=== PATIENT | female | born 1965 | race Caucasian/White ===

== ENCOUNTER 2017-02-05 11:06 | Emergency (ER) | payer MEDICARE, MEDICAID ==
[~2017-02-05] VITALS: Ht 160 cm; Wt 60.8 kg
--- NOTE | 2017-02-05 11:30 | NUR ---
PT CAME IN FOR L WRIST PAIN AND SWELLING S/P GLF 30 MIN HYDROLOGY PROFESSOR. DENIES HEAD, NECK PAIN. DENIES KO. SEEN BY MD FOR EVAL. AAOX3. VSS. SAFETY AND COMFORT MEASURES PROVIDED. WILL MONITOR.
--- NOTE | 2017-02-05 11:40 | NUR ---
XRAY DONE AT BS.
[2017-02-05] MEDS ORDERED: IBUPROFEN 400 MG TABLET ONE (11:43)
[2017-02-05] MEDS: IBUPROFEN 400 MG TABLET PO ONE (11:48)
[2017-02-05 12:53] VITALS: BP 145/77
--- NOTE | 2017-02-05 12:53 | NUR ---
PT. VERBALIZED UNDERSTANDING OF AFTERCARE INSTRUCTIONS.Patient discharged to home in stable condition. Written and verbal after care instructions given. Patient verbalizes understanding of instruction.
== END 2017-02-05 13:01 | disposition home or self-care (01) ==
LOC: ER 11:07
DX: S52.612A Displaced fracture of left ulna styloid process, initial encounter for closed fracture (principal); S52.502A Unspecified fracture of the lower end of left radius, initial encounter for closed fracture; N18.6 End stage renal disease; Z99.2 Dependence on renal dialysis; Q61.3 Polycystic kidney, unspecified; W18.39XA Other fall on same level, initial encounter; Y93.89 Activity, other specified; Y92.89 Other specified places as the place of occurrence of the external cause; Y99.9 Unspecified external cause status
CPT/HCPCS: 29125; 73100; 99284; A4606; Z7610

== ENCOUNTER 2019-03-15 17:48 | Inpatient (IN) | payer MEDICARE, MEDICAID ==
[~2019-03-15] VITALS: Ht 160 cm; Wt 58.1 kg
[~2019-03-15 17:48] MED LIST: PIPERACILLIN /TAZOBACTAM 2.25 G in IV D5W 50 ML IV SCH
--- NOTE | 2019-03-15 17:48 | NUR ---
PT BIBRA FROM HOME FOR GEN WEAKNESS, BS MEDICAL RESEARCH TECH 40; PT AAOX4, -SOB, PT ON MONITOR, MD AT BEDSIDE FORE JANESSA
[2019-03-15] MEDS ORDERED: DEXTROSE 50%-WATER 50 ML DISP.SYRIN ONE (17:58)
[2019-03-15] MEDS ORDERED: DEXTROSE 50%-WATER 50 ML DISP.SYRIN IVP ONE (18:00)
[2019-03-15 18:23] LABS: BASOPHILS # (AUTO) 0.2 /CMM (0.0-0.2); BASOPHILS % (AUTO) 1.5 % (0.0-2.0); EOSINOPHILS % (AUTO) 0.1 % (0.0-6.0); HEMATOCRIT 38 % (33-45); HEMOGLOBIN 11.6 g/dL (11.5-14.8); LYMPHOCYTES # (AUTO) 2.1 /CMM (0.8-4.8); LYMPHOCYTES % (AUTO) 19.8 % (20.0-44.0); MEAN CORPUSCULAR HGB CONC 30 g/dl (31.0-36.0); MEAN CORPUSCULAR VOLUME 94 fL (82-100); MONOCYTES # (AUTO) 0.6 /CMM (0.1-1.30); MONOCYTES % (AUTO) 5.2 % (2.0-12.0); NEUTROPHILS # (AUTO) 7.8 /CMM (1.8-8.9); NEUTROPHILS % (AUTO) 73.4 % (43.0-81.0); PLATELET COUNT (AUTO) 447 /CMM (150-450); RED BLOOD CELL COUNT(AUTO) 4.07 MIL/uL (4.0-5.2); WHITE BLOOD COUNT (AUTO) 10.6 K/uL (4.3-11.0)
[2019-03-15] MEDS ORDERED: ONDANSETRON HCL/PF 4 MG/2 ML VIAL ONE ×2 (18:27→19:03)
[2019-03-15] MEDS ORDERED: ONDANSETRON HCL/PF - ER 4 MG/2 ML VIAL IV ONE ×2 (18:30→19:00)
[2019-03-15 18:43] LABS: CALCIUM, SERUM 8.2 mg/dL (8.5-10.1); POTASSIUM 6.1 mmol/L (3.5-5.1)
[2019-03-15] MEDS ORDERED: HYDROMORPHONE 1 MG/1 ML DISP.SYRIN ONE ×2 (18:43→21:11)
[2019-03-15 18:47] LABS: ALBUMIN 3.8 g/dL (3.4-5.0); BILIRUBIN,DIRECT 0.1 mg/dL (0.0-0.2); BILIRUBIN,TOTAL 0.3 mg/dL (0.2-1.0); TOTAL PROTEIN, SERUM 8.1 g/dL (6.4-8.2)
[2019-03-15 18:56] LABS: CREATININE 8.9 mg/dL (0.6-1.3)
[2019-03-15] MEDS ORDERED: HYDROMORPHONE INJ 0.5 MG/0.5 ML SYRINGE IV ONE (19:00)
[2019-03-15] MEDS ORDERED: IV NS 0.9% 1,000 ML BAG IV ONE (19:00)
[2019-03-15] MEDS ORDERED: IOHEXOL-300 100 ML VIAL IV ONE (19:16)
[2019-03-15] MEDS ORDERED: IV NS 0.9% 250 ML IV ONE (19:16)
[2019-03-15] MEDS ORDERED: CT SWABBABLE VALVE TRANS SET 1 EA INFUS.SET MC ONE (19:16)
[2019-03-15 19:24] LABS: ABG BASE EXCESS -25.7 mmol/L; ABG OXYGEN SATURATION 97.1 % (92.0-98.5); ABG PCO2 12.5 mmHg (35.0-45.0); ABG PH 7.025 (7.350-7.450); ABG PO2 139.1 mmHg (75.0-100.0); COHb 0.2 % (0.5-1.5); MetHb 0.6 % (0.0-1.5); O2Hb 96.3 % (94.0-97.0); SITE, ABG Right Radial; VENT MODE, BG ROOM AIR
[2019-03-15] MEDS ORDERED: PIPERACILLIN /TAZOBACTAM 3.375 G in IV D5W 50 ML IV ONE (19:30)
[2019-03-15] MEDS ORDERED: IOHEXOL-350 100 ML VIAL IV ONE (19:43)
--- NOTE | 2019-03-15 20:01 | NUR ---
CALLED LEATHER PRODUCTION MACHINE OPERATOR SURGEON DR MOY, ON THE PHONE WITH DR COLUNGA.
[2019-03-15] MEDS ORDERED: PIPERACILLIN /TAZOBACTAM 3.375 G VIAL IV ONE (20:13)
[2019-03-15] MEDS ORDERED: SODIUM BICARBONATE SYR 50 MEQ/50 ML DISP.SYRIN ONE ×2 (20:26→22:36)
[2019-03-15] MEDS ORDERED: SODIUM BICARBONATE SYR 50 MEQ/50 ML DISP.SYRIN IV ONE ×3 (20:30→23:00)
[2019-03-15 20:41] LABS: APPEARANCE,URINE Clear (CLEAR); BILIRUBIN,URINE Negative (NEGATIVE); BLOOD, URINE Small Ery/uL (NEGATIVE); COLOR,URINE Light yellow (YELLOW); KETONES,URINE 40 (NEGATIVE); LEUKOCYTE ESTERASE ,URINE Negative (NEGATIVE); NITRITE, URINE Negative (NEGATIVE); PH,URINE 6.5 (5.0-8.0); PROTEIN,URINE >=300 mg/dl (NEGATIVE); UGLUCOSE 100 MG/DL mg/dL (NEGATIVE); UROBILINOGEN,URINE 0.2 EU/dL (0.2)
[2019-03-15 20:50] LABS: BACTERIA,URINE Rare /HPF (None Seen); SQUAMOUS EPITHELIAL CELL,UR Few /HPF (None Seen); WBC,URINE 0-2 /HPF (0-3)
[2019-03-15] MEDS ORDERED: VANCOMYCIN 1 GM in IV D5W 250 ML IV ONE (21:00)
[2019-03-15] MEDS ORDERED: HYDROMORPHONE 1 MG/1 ML DISP.SYRIN IV ONE (21:00)
[2019-03-15 21:30] LABS: CALCIUM, SERUM 7.3 mg/dL (8.5-10.1); POTASSIUM 6.1 mmol/L (3.5-5.1)
[2019-03-15 21:32] LABS: CREATININE 8.7 mg/dL (0.6-1.3)
[2019-03-15] MEDS ORDERED: IV NS 0.9% 1,000 ML IV PRN (21:42)
[2019-03-15] MEDS ORDERED: ONDANSETRON HCL/PF 4 MG/2 ML VIAL IVP PRN (22:00)
[2019-03-15] MEDS ORDERED: Sodium Bicarbonate 150 MEQ in IV D5W 1,000 ML IV PRN ×2 (22:00→22:30)
[2019-03-15] MEDS ORDERED: Z GUARD REMEDY 2 OZ OINT TP PRN (22:00)
[2019-03-15] MEDS ORDERED: NOREPINEPHRINE 8 MG in IV D5W 500 ML IV PRN (22:00)
[2019-03-15 22:04] LABS: LYMPHOCYTES % (MANUAL) 12 % (16-48); METAMYELOCYTES % 1 % (0-0); MONOCYTES % (MANUAL) 4 % (0-11.0); MYELOCYTES % 4 % (0-0); NEUTROPHILS % (MANUAL) 79 (42-76)
--- NOTE | 2019-03-15 22:05 | NUR ---
REPORT GIVEN TO LARRY ADORNO FOR MERCEDEZ; PT WILL BE TRANSPORTED TO ICU VIA [facility]
--- NOTE | 2019-03-15 22:06 | NUR ---
NETTING INSPECTOR NOTES GABRIEL SELLERS AT BEDSIDE, WITH VERBAL ORDER FOR LIDOCAINE 2%. ORDER PLACED Addendum: 03/15/19 at 2212 by JADE MARCUS RN ORDER CHANGED TO XYLOCAINE 1% 30ML VIAL X1
[2019-03-15 22:07] VITALS: BP 189/81
[2019-03-15] MEDS ORDERED: LIDOCAINE HCL/MPF 1% 30 ML VIAL IJ ONE (22:07)
[2019-03-15 22:25] VITALS: BP 192/77
[2019-03-15] MEDS ORDERED: LIDOCAINE HCL/PF 1% 30 ML SDV IJ ONE (22:30)
[2019-03-15] MEDS ORDERED: LIDOCAINE 2% 20 ML MDV TP ONE (22:30)
[2019-03-15] MEDS ORDERED: hydrALAZINE HCL IV 20 MG VIAL ONE (22:31)
--- NOTE | 2019-03-15 22:36 | NUR ---
RADIATION OFFICER NOTES GABRIEL SELLERS AT BEDSIDE, WITH VERBAL ORDER FOR 1 AMP OF SODIUM BICARBONATE IV PUSH X1 NOW. READ BACK FOR CLARIFICATION. PATIENT TO GET 1 AMP BICARB IV PUSH, THEN START BICARB DRIP OF 3 AMPS BICARB IN D5W 1000ML @ 80ML/HR
[2019-03-15] MEDS: hydrALAZINE HCL IV 20 MG VIAL IV PRN (22:40)
[2019-03-15 22:45] VITALS: BP 195/75
[2019-03-15 23:00] VITALS: BP 182/73
[2019-03-15] MEDS ORDERED: ROCURONIUM BROMIDE 50 MG/5 ML ONE (23:04)
[2019-03-15] MEDS ORDERED: MIDAZOLAM HCL 2 MG/2ML VIAL ONE (23:04)
[2019-03-15] MEDS ORDERED: HYDROMORPHONE INJ 2 MG/ML DISP.SYRIN ONE (23:05)
--- NOTE | 2019-03-15 23:15 | NUR ---
RN NOTES DR. MOY ( SURGEON) AT BEDSIDE TOGETHER WITH OR STAFF TO ASSESS THE PATIENT AND EXPLAINED THE PROCEDURE.
--- NOTE | 2019-03-15 23:21 | NUR ---
RN NOTES PATIENT LEFT FOR SURGERY FOR EXPLORATORY LAPAROTOMY WITH DR. MOY (SURGEON) AND PICKED UP BY OR STAFF
[2019-03-15] MEDS ORDERED: BUPIVACAINE MPF 0.5% W/EPI INJ 30 ML VIAL ONE (23:59)
[2019-03-16] VITALS (40 sets, daily range): BP systolic 83–149; BP diastolic 34–67
--- NOTE | 2019-03-16 00:45 | NUR ---
SURVEILLANCE DIRECTOR NOTES PATIENT BACK FROM GABRIEL COLVIN WITH VERBAL ORDER TO START PROPOFOL GTT, PATIENT INTUBATED.
[2019-03-16] MEDS ORDERED: PROPOFOL 100 ML ONE (00:46)
--- NOTE | 2019-03-16 00:50 | NUR ---
RN NOTES PATIENT CAME BACK FROM O.R ORALLY INTUBATED WITH ETT 7.0 AND 22 CM @ LIP. CONNECTED TO VENT SETTING AC 16 TV 500 FIO2 40% PEEP 5. PT STILL SEDATED, VERBALLY ORDER RECEIVED FROM DR. SELLERS TO START PROPOFOL AND TITRATE ORDERED AND BILATERAL WRIST RESTRAINT. NOTED PATIENT WITH 3 SURGICAL SITE ON ABDOMEN. IV SITE ON RIJ WITH DOUBLE LUMEN CATH INTACT WITH GOOD BLOOD RETURN DONE IN O.R. WILL CONTINUE TO MONITOR.
[2019-03-16] MEDS ORDERED: PROPOFOL 100 ML IV PRN (01:00)
[2019-03-16 01:34] LABS: BASOPHILS # (AUTO) 0.2 /CMM (0.0-0.2); BASOPHILS % (AUTO) 0.7 % (0.0-2.0); EOSINOPHILS % (AUTO) 0.4 % (0.0-6.0); HEMATOCRIT 37 % (33-45); HEMOGLOBIN 10.6 g/dL (11.5-14.8); LYMPHOCYTES # (AUTO) 2.1 /CMM (0.8-4.8); LYMPHOCYTES % (AUTO) 8.9 % (20.0-44.0); MEAN CORPUSCULAR HGB CONC 29 g/dl (31.0-36.0); MEAN CORPUSCULAR VOLUME 97 fL (82-100); MONOCYTES # (AUTO) 1.1 /CMM (0.1-1.30); MONOCYTES % (AUTO) 4.5 % (2.0-12.0); NEUTROPHILS # (AUTO) 20.2 /CMM (1.8-8.9); NEUTROPHILS % (AUTO) 85.5 % (43.0-81.0); PLATELET COUNT (AUTO) 398 /CMM (150-450); RED BLOOD CELL COUNT(AUTO) 3.77 MIL/uL (4.0-5.2); WHITE BLOOD COUNT (AUTO) 23.6 K/uL (4.3-11.0)
[2019-03-16 01:52] LABS: BAND % (MANUAL) 3 % (0.0-5.0); LYMPHOCYTES % (MANUAL) 12 % (16-48); MONOCYTES % (MANUAL) 5 % (0-11.0)
[2019-03-16 01:53] LABS: METAMYELOCYTES % 1 % (0-0); MYELOCYTES % 1 % (0-0); NEUTROPHILS % (MANUAL) 78 (42-76)
--- NOTE | 2019-03-16 02:00 | NUR ---
RN NOTES INFORMED DR. SELLERS THAT PATIENT STILL AWAKE, SLIGHT AGITATED AND REPORTED CRITICAL VALUE OF BICARB 7 AND CREA - 9.3 AND LACTIC ACID 18.4 . PATIENT IS ALREADY WITH IVF D5W +3 AMP NA HCO3 @ 80 ML/HR. PER MD TO GIVE NS 500ML BOLUS AND OK TO INCREASE PROPOFOL UPTO 100 MCG/KG/MIN. 02:50 DR. SELLERS ON THE FLOOR REPORTED POST INTUBATION CXR RESULT.
[2019-03-16 02:01] LABS: ALBUMIN 3.2 g/dL (3.4-5.0); BILIRUBIN,TOTAL 0.3 mg/dL (0.2-1.0); CALCIUM, SERUM 7.3 mg/dL (8.5-10.1); POTASSIUM 5.3 mmol/L (3.5-5.1); TOTAL PROTEIN, SERUM 6.8 g/dL (6.4-8.2)
[2019-03-16 02:03] LABS: CREATININE 9.3 mg/dL (0.6-1.3)
[2019-03-16] MEDS ORDERED: IV NS 0.9% 500 ML IV ONE (03:00)
[2019-03-16] MEDS: PROPOFOL 100 ML IV PRN ×7 (04:19→23:57)
[2019-03-16] MEDS ORDERED: PIPERACILLIN /TAZOBACTAM 2.25 G VIAL IV ONE (04:23)
[2019-03-16 04:44] LABS: BASOPHILS # (AUTO) 0.1 /CMM (0.0-0.2); BASOPHILS % (AUTO) 0.3 % (0.0-2.0); EOSINOPHILS % (AUTO) 0.1 % (0.0-6.0); HEMATOCRIT 33 % (33-45); HEMOGLOBIN 9.9 g/dL (11.5-14.8); LYMPHOCYTES # (AUTO) 1.5 /CMM (0.8-4.8); LYMPHOCYTES % (AUTO) 6.3 % (20.0-44.0); MEAN CORPUSCULAR HGB CONC 30 g/dl (31.0-36.0); MEAN CORPUSCULAR VOLUME 96 fL (82-100); MONOCYTES # (AUTO) 1.6 /CMM (0.1-1.30); MONOCYTES % (AUTO) 6.9 % (2.0-12.0); NEUTROPHILS # (AUTO) 20.6 /CMM (1.8-8.9); NEUTROPHILS % (AUTO) 86.4 % (43.0-81.0); PLATELET COUNT (AUTO) 358 /CMM (150-450); RED BLOOD CELL COUNT(AUTO) 3.46 MIL/uL (4.0-5.2); WHITE BLOOD COUNT (AUTO) 23.9 K/uL (4.3-11.0)
[2019-03-16 04:58] LABS: ALBUMIN 2.9 g/dL (3.4-5.0); BILIRUBIN,TOTAL 0.2 mg/dL (0.2-1.0); CALCIUM, SERUM 6.9 mg/dL (8.5-10.1); MAGNESIUM 2.1 mg/dL (1.8-2.4); POTASSIUM 5.3 mmol/L (3.5-5.1); TOTAL PROTEIN, SERUM 6.2 g/dL (6.4-8.2)
[2019-03-16 05:23] LABS: ABG BASE EXCESS -26.6 mmol/L; ABG OXYGEN SATURATION 98.3 % (92.0-98.5); ABG PCO2 16.2 mmHg (35.0-45.0); ABG PO2 199.3 mmHg (75.0-100.0); AaDO2 67.3 mmHg; COHb 0.3 % (0.5-1.5); MetHb 0.7 % (0.0-1.5); O2Hb 97.3 % (94.0-97.0); PEEP,BG 5 cm H2O; SITE, ABG Right Radial; VENT MODE, BG AC 16 500 40% +5; VT, ABG 500 mL
[2019-03-16 05:23] LABS: THYROID STIMULATING HORMONE 1.001 uIU/mL (0.358-3.74)
[2019-03-16 05:30] LABS: CREATININE 9.2 mg/dL (0.6-1.3); PHOSPHORUS 13.5 mg/dL (2.5-4.9)
--- NOTE | 2019-03-16 07:00 | NUR ---
RN NOTES DIALYSIS STARTED AT THIS TIME. PATIENT IS SEDATED. BED BATH DONE AND TOLERATED WELL. SATURATION REMAINED 100%.GOT A CRITICAL REPORT THAT CO2 5 , CREA 9.3 AND PHOS 13.5 CRITICAL VALUE REPORTED TO DR SELLERS. IVF D5W +3 AMP NA H30 ONGOING AND PROPOFOL TITRATED ORDERED. KEPT PT CLEAN AND DRY. ENDORSED TO NEXT SHIFT FOR CONTINUITY OF CARE
--- NOTE | 2019-03-16 08:00 | NUR ---
RN INITIAL NOTES ON GOING DIALYSIS AT THIS TIME. PATIENT OPENS EYES TO STIMULI, ETT IN PLACE ATTACHED TO VENT AND SETTINGS TOLERATED WELL. SATURATION REMAINED 100%.IVF D5W +3 AMP NA H30 ONGOING AND PROPOFOL TITRATED ORDERED. KEPT PT CLEAN AND DRY. HUTCHISON DRAINING THRU GRAVITY. MAXILLOFACIAL SURGEON RESTRAINTS IN PLACE, SKIN AND CIRCULATION WNL. NO BLEEDING NOTED FROM ABDOMINAL SURGICAL SITE. POSITIONED FOR COMFORT. SINUS RHYTHM ON THE MONITOR.
[2019-03-16 09:15] LABS: ABG BASE EXCESS -9.3 mmol/L; ABG OXYGEN SATURATION 98.8 % (92.0-98.5); ABG PCO2 21.5 mmHg (35.0-45.0); ABG PH 7.422 (7.350-7.450); ABG PO2 204.1 mmHg (75.0-100.0); AaDO2 56.4 mmHg; COHb 0.1 % (0.5-1.5); MetHb 0.5 % (0.0-1.5); O2Hb 98.2 % (94.0-97.0); SITE, ABG A-Line
[2019-03-16] MEDS: FAMOTIDINE/PF INJ 20 MG/2 ML VIAL IV SCH (09:53)
--- NOTE | 2019-03-16 10:00 | NUR ---
RN NOTES DR BACK WITH HEPARIN SUBQ VERBAL ORDER Q 12 HOURS 5000 UNITS; NOTED AND CARRIED OUT
[2019-03-16] MEDS ORDERED: Sodium Acetate 150 MEQ in IV D5W 1,000 ML IV PRN (10:13)
[2019-03-16] MEDS ORDERED: CLINDAMYCIN 600 MG in IV NS 0.9% 50 ML IV SCH (13:00)
[2019-03-16] MEDS ORDERED: CLINDAMYCIN 600 MG in IV D5W 50 ML IV SCH (13:00)
[2019-03-16] MEDS: PIPERACILLIN /TAZOBACTAM 2.25 G in IV D5W 50 ML IV SCH ×2 (13:36→21:11)
[2019-03-16] MEDS: IV NS 0.9% 1,000 ML IV PRN (13:36)
[2019-03-16 17:27] LABS: ABG BASE EXCESS -9.4 mmol/L; ABG PCO2 21.8 mmHg (35.0-45.0); ABG PH 7.415 (7.350-7.450); ABG PO2 139.8 mmHg (75.0-100.0); AaDO2 48.5 mmHg; COHb 0.3 % (0.5-1.5); MetHb 0.7 % (0.0-1.5); SITE, ABG A-Line; VENT MODE, BG AC 16 500 30% +5
--- NOTE | 2019-03-16 19:13 | NUR ---
RN CLOSING NOTES PT REMAINS ON PROPOFOL, TITRATED DIRECTED. NO A/R NOTED. BP LEVELS REMAINS STABLE. VENT SETTINGS TOLERATED WELL. TURNED AND REPOSITIONED. IVF INFUSING WELL. WILL CONTINUE WITH CURRENT TREATMENT. WILL ENDORSE TO NEXT SHIFT RN FOR CONTINUITY OF CARE IN STABLE CONDITION Addendum: 03/16/19 at 1922 by ANNA CRAWFORD RN KUMAR SOFT WRIST RESTRAINTS RELEASED AT INTERVALS, ROM DONE, SKIN AND CIRCULATION WNL.
--- NOTE | 2019-03-16 19:45 | NUR ---
ICU/STRAP CUTTING MACHINE OPERATOR RECEIVED REPORT FROM DAY NURSE. SEE NURSING FLOW SHEET FOR ASSESSMENT ALONG SKIN ISSUES THAT PT MAY HAVE ALONG WITH EACH INTERVENTION TO THESE. PT HAS IV' WHICH ARE ADDRESSED ON THE FLOWSHEET ALONG WITH THE TITRATIONS. PT WAS TURNED AND REPOSITIONED FOR COMFORT AND CARE. NO ACUTE DISTRESS SEEN AT THIS TIME. WILL MONITOR THIS PT.
--- NOTE | 2019-03-16 20:28 | NUR ---
PATIENT RECEIVED ORALLY INTUBATED WITH 7.0 ET TUBE SECURED @ 22 CM LIP LINE. VENT SETTINGS: AC 16, 500, 30%, PEEP 5 PT IS SEDATED , ET TUBE SECURED AND PATENT. VENT PLUGGED TO RED OUTLET. ALARMS ON AND AUDIBLE. SUCTIONED SMALL AMOUNT OF [place]O THICK SECRETIONS. WILL CONTINUE TO MONITOR CLOSELY.
[2019-03-16] MEDS: HEPARIN SODIUM, PORCINE 5000 UNITS/1 ML VIAL SQ SCH (21:16)
[2019-03-16 21:46] LABS: BASOPHILS % (AUTO) 0.3 % (0.0-2.0); HEMATOCRIT 27 % (33-45); LYMPHOCYTES # (AUTO) 1.1 /CMM (0.8-4.8); MEAN CORPUSCULAR HGB CONC 33 g/dl (31.0-36.0); MEAN CORPUSCULAR VOLUME 87 fL (82-100); MONOCYTES # (AUTO) 0.8 /CMM (0.1-1.30); MONOCYTES % (AUTO) 11.1 % (2.0-12.0); NEUTROPHILS % (AUTO) 72.6 % (43.0-81.0); PLATELET COUNT (AUTO) 193 /CMM (150-450); RED BLOOD CELL COUNT(AUTO) 3.15 MIL/uL (4.0-5.2); WHITE BLOOD COUNT (AUTO) 6.9 K/uL (4.3-11.0)
--- NOTE | 2019-03-16 22:10 | NUR ---
ICU/TRANSIT PROOF MACHINE OPERATOR DR CAMPBELL HERE TO SEE PT, ASKED ABOUT AM LABS THEN ORDERED STAT LABS.
[2019-03-16 22:15] LABS: CALCIUM, SERUM 6.4 mg/dL (8.5-10.1)
[2019-03-16 22:17] LABS: CREATININE 7.5 mg/dL (0.6-1.3)
[2019-03-16 22:22] LABS: BILIRUBIN,TOTAL 0.4 mg/dL (0.2-1.0)
[2019-03-16 22:23] LABS: ALBUMIN 2.6 g/dL (3.4-5.0); TOTAL PROTEIN, SERUM 5.5 g/dL (6.4-8.2)
--- NOTE | 2019-03-16 22:30 | NUR ---
ICU/MARBLEIZER PT GIVEN PM CARE, NO BM SEEN. PT IS ORALLY INTUBATED WITH SATURATION AT 98-100%. PT WAS TURNED AND REPOSITIONED FOR COMFORT AND CARE. WILL CONTINUE TO MONITOR THIS PT, ALONG WITH SATURATION, AND HEART RATE. NO ACUTE DISTRESS SEEN AT THIS TIME.
--- NOTE | 2019-03-16 23:10 | NUR ---
ICU/MANAGER TECHNICAL SUPPORT STAT LABS RESULTED TO DR CAMPBELL. NO NEW ORDERS RECEIVED AT THIS TIME.
[2019-03-17] VITALS (29 sets, daily range): BP systolic 122–191; BP diastolic 52–80
--- NOTE | 2019-03-17 02:10 | NUR ---
ICU/TURKEY ROLL MAKER FAMILY CAME FOR BRIEF VISIT, GAVE UPDATE.
[2019-03-17] MEDS: PROPOFOL 100 ML IV PRN ×2 (02:33→05:50)
[2019-03-17] MEDS: PIPERACILLIN /TAZOBACTAM 2.25 G in IV D5W 50 ML IV SCH ×3 (04:10→20:39)
--- NOTE | 2019-03-17 04:10 | NUR ---
ICU/INSURANCE COUNSELOR PT GIVEN AM CARE, NO BM SEEN. PT REMAINS ORALLY INTUBATED WITH SATURATION AT 98-100%. PT WAS TURNED AND REPOSITIONED FOR COMFORT AND CARE. WILL CONTINUE TO MONITOR THIS PT, ALONG WITH SATURATION, AND HEART RATE. NO ACUTE DISTRESS SEEN AT THIS TIME.
[2019-03-17 04:29] LABS: BASOPHILS % (AUTO) 0.4 % (0.0-2.0); EOSINOPHILS % (AUTO) 0.1 % (0.0-6.0); HEMATOCRIT 27 % (33-45); LYMPHOCYTES # (AUTO) 1.2 /CMM (0.8-4.8); LYMPHOCYTES % (AUTO) 16.8 % (20.0-44.0); MEAN CORPUSCULAR HGB CONC 34 g/dl (31.0-36.0); MEAN CORPUSCULAR VOLUME 88 fL (82-100); MONOCYTES # (AUTO) 0.7 /CMM (0.1-1.30); MONOCYTES % (AUTO) 9.7 % (2.0-12.0); NEUTROPHILS # (AUTO) 5.2 /CMM (1.8-8.9); PLATELET COUNT (AUTO) 199 /CMM (150-450); RED BLOOD CELL COUNT(AUTO) 3.06 MIL/uL (4.0-5.2); WHITE BLOOD COUNT (AUTO) 7.1 K/uL (4.3-11.0)
[2019-03-17 04:43] LABS: CALCIUM, SERUM 6.5 mg/dL (8.5-10.1); MAGNESIUM 1.8 mg/dL (1.8-2.4); PHOSPHORUS 6.4 mg/dL (2.5-4.9); POTASSIUM 4.7 mmol/L (3.5-5.1)
--- NOTE | 2019-03-17 04:45 | NUR ---
ICU/FABRICATOR [facility] CALLED WITH ABNORMAL CHEST CT RESULTS WHICH WAS DONE AT 03/16/19 @ 1045 ON DAY SHIFT. RESULTS CAME IN ON 03/17/19@0240. RESULTS: 1. Interval development of intra-abdominal free air and rule out ruptured viscus. Recommend clinical correlation. 2. Right internal jugular central line and with the distal portion extending into the right internal mammary vein. 3. Small right pleural effusion. No pneumothoraces. 4. Bibasilar subsegmental atelectasis. Additional bilateral lower lobe multi focal patchy ground-glass opacities consistent with edema and/or infection. 5. Mild cardiomegaly. 6. Polycystic kidney disease and innumerable hepatic cysts. 7. Subcutaneous emphysema involving the left lower thoracic and abdominal estrada. DR CAMPBELL WAS CALLED TO NOTIFY HIM OF RESULTS, NO NEW ORDERS WERE RECEIVED. ALSO AT THIS TIME NOTIFIED CHARGE NURSE.
--- NOTE | 2019-03-17 05:03 | NUR ---
ICU/ROTARY SHEAR OPERATOR AM LABS WERE DONE, AWAIT FOR ANY ABNORMAL LABS. AND CHEST XRAY TOO.
[2019-03-17] MEDS: IV NS 0.9% 1,000 ML IV PRN (05:50)
--- NOTE | 2019-03-17 07:10 | NUR ---
RN INITIAL NOTES RECEIVED PT INTUBATED, ON VENT. NO RESPIRATORY DISTRESS NOTED. NO SOB NOTED. NO SIGNS OF PAIN NOTED. PT SEDATED, ON DIPRIVAN AT 95MCG/MIN. WILL TITRATE ACCORDINGLY. RIJ TLC IN PLACE. IV LINES IN PLACE. IVF INFUSING. PT ON NPO. FC IN PLACE. NO HEMATURIA NOTED. BLE ELEVATED. PT REPOSITIONED. WILL MONITOR.
[2019-03-17] MEDS: FAMOTIDINE/PF INJ 20 MG/2 ML VIAL IV SCH (08:19)
[2019-03-17] MEDS: HEPARIN SODIUM, PORCINE 5000 UNITS/1 ML VIAL SQ SCH ×2 (08:20→20:45)
[2019-03-17 08:51] LABS: ABG BASE EXCESS -7.2 mmol/L; ABG OXYGEN SATURATION 97.6 % (92.0-98.5); ABG PCO2 28.7 mmHg (35.0-45.0); ABG PH 7.386 (7.350-7.450); ABG PO2 128.5 mmHg (75.0-100.0); AaDO2 51.7 mmHg; COHb 0.3 % (0.5-1.5); MetHb 0.6 % (0.0-1.5); O2Hb 96.7 % (94.0-97.0); PEEP,BG 5 cm H2O; SITE, ABG A-Line; VT, ABG 500 mL
--- NOTE | 2019-03-17 09:00 | NUR ---
RN NOTES 0830 DR EVA MOY AWARE AND DISCUSSED CT ABDOMEN WO CONTRAST RESULT. PER MD, INTRA ABDOMINAL FREE AIR IS RESIDUAL FROM LAPAROSCOPIC SURGERY. NO ORDER MADE. WILL MONITOR 0900 SEEN AND EXAMINED BY DR GUERRA. PT ON SEDATION VACATION. PT AWAKE, A/OX1-2. NO SOB NOTED. FOLLOWS SIMPLE COMMANDS. ORDERED WEANING TRIAL. ANG AFTER 1HR. FAMILY AT BEDSIDE AWARE. WILL CLOSELY MONITOR
--- NOTE | 2019-03-17 09:26 | NUR ---
vent changes below per dr. chao: simv 4 ps15 peep +5 fio2 30% pt. is awake and follow commands and tolerating well on above changes. family @ bedside. Addendum: 03/17/19 at 0928 by FAUSTO WHEELER RT Amended: Links added.
[2019-03-17 10:51] LABS: ABG BASE EXCESS -8.8 mmol/L; ABG OXYGEN SATURATION 97.7 % (92.0-98.5); ABG PCO2 28.1 mmHg (35.0-45.0); ABG PH 7.359 (7.350-7.450); ABG PO2 139.5 mmHg (75.0-100.0); AaDO2 41.4 mmHg; COHb 0.3 % (0.5-1.5); MetHb 0.7 % (0.0-1.5); O2Hb 96.7 % (94.0-97.0); PEEP,BG 5 cm H2O; SITE, ABG A-Line; VENT MODE, BG SIMV 4 / PS 15; VT, ABG 500 mL
--- NOTE | 2019-03-17 11:10 | NUR ---
PT IS AWAKE AND ALERT EXTUBATED @ [address] GUERRA, PLACED INTO ROOM AIR SPO2 100%, HR 76 BPM. RN NOTIFIED FOR EXTUBATION. Addendum: 03/17/19 at 1116 by FAUSTO WHEELER RT Amended: Links added.
--- NOTE | 2019-03-17 12:30 | NUR ---
RN NOTES CALLED DR CAPO MOY AND NOTIFIED OF LACTIC ACID 7.3 FROM 8.5 AND LIPASE 761 FROM 1858. PT AWAKE, A/OX2-3. ON ROOM AIR. EXTUBATED AT 1110. NO RESPIRATORY DISTRESS NOTED. NO SOB NOTED. DENIES ANY PAIN. NO NEW ORDER MADE
[2019-03-17] MEDS: MORPHINE SULFATE INJ 2 MG/ML DISP.SYRIN IV PRN (13:16)
[2019-03-17] MEDS ORDERED: Calcium Gluconate 1GM/10ML 9.3 MEQ in IV NS 0.9% 250 ML IV ONE (14:00)
[2019-03-17 15:13] LABS: ABG BASE EXCESS -9.4 mmol/L; ABG OXYGEN SATURATION 93.4 % (92.0-98.5); ABG PCO2 25.3 mmHg (35.0-45.0); ABG PH 7.374 (7.350-7.450); ABG PO2 77.3 mmHg (75.0-100.0); AaDO2 42.1 mmHg; COHb 0.3 % (0.5-1.5); MetHb 0.9 % (0.0-1.5); O2Hb 92.3 % (94.0-97.0); SITE, ABG Right Radial; VENT MODE, BG room air
[2019-03-17 15:32] LABS: BILIRUBIN,DIRECT 0.2 mg/dL (0.0-0.2)
--- NOTE | 2019-03-17 16:35 | NUR ---
RN NOTES CALLED DR BACK REGARDING LACTIC ACID 8.3 FROM 7.3. PT A/OX2-3. ON IVF. AFEBRILE. ON IVF ATB. NO ASE NOTED. WILL MONITOR
--- NOTE | 2019-03-17 18:34 | NUR ---
RN CLOSING NOTES PT ON ROOM AIR. NO RESPIRATORY DISTRESS NOTED. IV LINES IN PLACE. IVF INFUSING. KEPT COMFORTABLE. KEPT CLEAN AND DRY. ALL NEEDS ATTENDED AND MET. CALL LIGHT WITHIN REACH. WILL ENDORSE FOR CONTINUITY OF CARE
[2019-03-17] MEDS: hydrALAZINE HCL IV 20 MG VIAL IV PRN (20:42)
[2019-03-18] VITALS (41 sets, daily range): BP systolic 112–208; BP diastolic 47–95
[2019-03-18] MEDS: IV NS 0.9% 1,000 ML IV PRN ×2 (01:00→22:40)
[2019-03-18] MEDS: MORPHINE SULFATE INJ 2 MG/ML DISP.SYRIN IV PRN ×2 (03:59→08:46)
[2019-03-18] MEDS: PIPERACILLIN /TAZOBACTAM 2.25 G in IV D5W 50 ML IV SCH ×3 (04:00→20:58)
[2019-03-18 04:32] LABS: BASOPHILS # (AUTO) 0.1 /CMM (0.0-0.2); BASOPHILS % (AUTO) 0.7 % (0.0-2.0); EOSINOPHILS % (AUTO) 0.5 % (0.0-6.0); HEMATOCRIT 30 % (33-45); HEMOGLOBIN 9.9 g/dL (11.5-14.8); LYMPHOCYTES # (AUTO) 1.2 /CMM (0.8-4.8); LYMPHOCYTES % (AUTO) 13.6 % (20.0-44.0); MEAN CORPUSCULAR HGB CONC 33 g/dl (31.0-36.0); MEAN CORPUSCULAR VOLUME 88 fL (82-100); MONOCYTES # (AUTO) 0.7 /CMM (0.1-1.30); MONOCYTES % (AUTO) 8.4 % (2.0-12.0); NEUTROPHILS # (AUTO) 6.5 /CMM (1.8-8.9); NEUTROPHILS % (AUTO) 76.8 % (43.0-81.0); PLATELET COUNT (AUTO) 183 /CMM (150-450); RED BLOOD CELL COUNT(AUTO) 3.44 MIL/uL (4.0-5.2); WHITE BLOOD COUNT (AUTO) 8.5 K/uL (4.3-11.0)
[2019-03-18 04:47] LABS: CALCIUM, SERUM 7.7 mg/dL (8.5-10.1); POTASSIUM 5.2 mmol/L (3.5-5.1)
[2019-03-18 04:54] LABS: CREATININE 9.7 mg/dL (0.6-1.3); PHOSPHORUS 8.8 mg/dL (2.5-4.9)
[2019-03-18] MEDS: hydrALAZINE HCL IV 20 MG VIAL IV PRN ×3 (05:35→21:43)
--- NOTE | 2019-03-18 06:25 | NUR ---
RN NOTES RECEIVED PATIENT AWAKE IN BED. IN NO APPARENT DISTRESS, BREATHING EVEN AND UNLABORED. ROOM AIR TOLERATING WELL. ALERT AND ORIENTED, VERBALLY ABLE TO COMMUNICATE NEEDS. TWICE ADMINISTERED HYDRAZALINE FOR sbp>180, WITH HELP. NOTED PATIENT TO BE WEAK. UNABLE TO TURN TO SIDE OR LIFT HEAD. LAB CALLED FOR CRITICAL HIGH LEVELS OF LACITC ACID, CREATININE AND PHOS. RELAYED TO MD WAITING FOR REPLY. KEPT CLEAN AND DRY. WILL ENDORSE TO NEXT SHIFT FOR CONTINUITY OF CARE.
--- NOTE | 2019-03-18 08:00 | NUR ---
ICU/RN INITIAL NOTES,AM RECEIVED REPORT FROM NIGHT NURSE. PT ALERT, AWAKE, FOLLOWS COMMANDS. ON ROOM AIR. NO ACUTE DISTRESS NOTED. PT SINUS ON TELE. EPISODES OF HTN NOTED OVER NIGHT. FAMILY AT BEDSIDE. UPDATES GIVEN. WAITING FOR MD FOR FOLLOWUP. PT NOTED TO BE WEAK AND DROWSY. WILL CONTINUE TO MONITOR AND CARE. HUTCHISON CATH IN PLACE, DRAINING YELLOW URINE.
[2019-03-18] MEDS: FAMOTIDINE/PF INJ 20 MG/2 ML VIAL IV SCH (08:45)
[2019-03-18] MEDS: HEPARIN SODIUM, PORCINE 5000 UNITS/1 ML VIAL SQ SCH ×2 (08:47→21:44)
[2019-03-18 11:35] LABS: ABG BASE EXCESS -4.6 mmol/L; ABG OXYGEN SATURATION 94.5 % (92.0-98.5); ABG PCO2 26.9 mmHg (35.0-45.0); ABG PH 7.449 (7.350-7.450); ABG PO2 79.8 mmHg (75.0-100.0); AaDO2 37.7 mmHg; COHb 0.1 % (0.5-1.5); MetHb 0.5 % (0.0-1.5); O2Hb 93.9 % (94.0-97.0); SITE, ABG Right Radial; VENT MODE, BG RA
--- NOTE | 2019-03-18 16:00 | NUR ---
PT OUT OF BED TO BEDSIDE COMMODE FOR BM. NO DISTRESS NOTED.
[2019-03-18] MEDS: METOPROLOL SUCCINATE 50 MG TAB.SR.24H PO SCH (16:19)
[2019-03-18] MEDS: METOPROLOL TARTRATE INJ 5 MG/5 ML AMPUL IVP PRN (19:24)
--- NOTE | 2019-03-18 19:24 | NUR ---
ICU NOTES RECEIVED PT AWAKE AAOX4.INP=[id number],GIVEN 5 MG LOPRESSOR SLOW IVP.OFFERS NO COMPLAINTS.DENIE PAIN OR DISCOMFORT.MONITOR SR.
--- NOTE | 2019-03-18 21:43 | NUR ---
ICU BRITT CONTINUES TO HAVE HIGH BP,GIVEN 10MG APRESOLINE SLOW IVP FOR SBP OF 199MMHG.OFFERS NO COMPLAINTS.
[2019-03-19] VITALS (33 sets, daily range): BP systolic 143–229; BP diastolic 59–103
[2019-03-19] MEDS: MORPHINE SULFATE INJ 2 MG/ML DISP.SYRIN IV PRN
--- NOTE | 2019-03-19 | NUR ---
ICU NOTES MORPHINE 2MG IVP GIVEN FOR GENERALIZED BODY ACHE AND PAIN 7-04/02
--- NOTE | 2019-03-19 00:30 | NUR ---
ICU NOTES PAIN=2/10.DOZING INTERMITTENTLY.
[2019-03-19] MEDS: METOPROLOL TARTRATE INJ 5 MG/5 ML AMPUL IVP PRN ×2 (03:07→08:15)
[2019-03-19] MEDS: hydrALAZINE HCL IV 20 MG VIAL IV PRN ×2 (04:06→08:16)
[2019-03-19] MEDS: PIPERACILLIN /TAZOBACTAM 2.25 G in IV D5W 50 ML IV SCH ×2 (05:17→13:12)
[2019-03-19 05:24] LABS: BASOPHILS # (AUTO) 0.1 /CMM (0.0-0.2); BASOPHILS % (AUTO) 0.9 % (0.0-2.0); EOSINOPHILS % (AUTO) 1.3 % (0.0-6.0); HEMATOCRIT 30 % (33-45); HEMOGLOBIN 10.1 g/dL (11.5-14.8); LYMPHOCYTES # (AUTO) 0.6 /CMM (0.8-4.8); MEAN CORPUSCULAR HGB CONC 34 g/dl (31.0-36.0); MEAN CORPUSCULAR VOLUME 87 fL (82-100); MONOCYTES # (AUTO) 0.5 /CMM (0.1-1.30); MONOCYTES % (AUTO) 7.3 % (2.0-12.0); NEUTROPHILS % (AUTO) 81.5 % (43.0-81.0); PLATELET COUNT (AUTO) 190 /CMM (150-450); RED BLOOD CELL COUNT(AUTO) 3.47 MIL/uL (4.0-5.2); WHITE BLOOD COUNT (AUTO) 6.2 K/uL (4.3-11.0)
[2019-03-19 05:36] LABS: CALCIUM, SERUM 7.9 mg/dL (8.5-10.1); CREATININE 7.3 mg/dL (0.6-1.3); MAGNESIUM 2.3 mg/dL (1.8-2.4); POTASSIUM 4.1 mmol/L (3.5-5.1)
--- NOTE | 2019-03-19 06:00 | NUR ---
ICU NOTES BP REMAINS HIGH,DENIES HEADACHE,DENIES PAIN.TAKING SIPS OF ICE.SLEPT MOST OF THE NIGHT BUT EASILY AROUSED.
--- NOTE | 2019-03-19 07:05 | NUR ---
HUMANE OFFICER INITIAL NOTES PT A/0 X4. NO SOB OR ACUTE SIGNS OF DISTRESS NOTED, BREATHING IS EVEN AND UNLABORED. PT ON RA AND SATING WELL. SBP NOTED TO BE ABOVE 200. SHE DENIES ANY HEADACHE, CP, OR PALPITATIONS. WILL ADMINISTER PRN BP MEDICATIONS. PT SR ON MONITOR. LEFT UPPER ARM AV FISTULA NOTED. BRUIT AND THRILL PRESENT. F/C NOTED TO BE INTACT AND DRAINING TO GRAVITY. RIGHT PERIPHERAL IVs NOTED TO BE C/D/I. NO REDNESS OR SIGNS OF INFILTRATION NOTED. BED IN LOW LOCKED POSITION, SIDE RIALS UP X2, CALL LIGHT WITHIN REACH. WILL CONTINUE TO MONITOR
[2019-03-19] MEDS: HEPARIN SODIUM, PORCINE 5000 UNITS/1 ML VIAL SQ SCH ×2 (08:13→21:48)
[2019-03-19] MEDS: FAMOTIDINE/PF INJ 20 MG/2 ML VIAL IV SCH (08:15)
--- NOTE | 2019-03-19 10:45 | NUR ---
WHARF ATTENDANT NOTES: MD ROUNDING (DR BACK) MD AT BEDSIDE AND MADE AWARE OF PT'S CONDITION AND RECNET VITALS. PER PT SHE HAS A REACTION TO CLONIDINE PATCH. VERBAL ORDERS OBTAINED FROM MD TO D/C PATCH AND ORDER CLONIDINE 1.2MG PO Q8H. [id number] ALSO OBTAINED FROM MD FOR CARDIO CONSULT (DR CARMEN) IN REGARDS TO HIGH BP, D/C CURRENT IV FLUIDS, AND D/C HUTCHISON CATHETER PT COMPLAINS OF DISCOMFORT
[2019-03-19] MEDS ORDERED: CLONIDINE HCL 0.2MG/24H PTWK 1 EA PATCH TD SCH (11:00)
--- NOTE | 2019-03-19 11:02 | NUR ---
SENIOR SALES ASSOCIATE NOTES: MD ROUNDING (DR MOY) DR CAPO MOY AT BEDSIDE AND UPDATED ON PT'S CONDITION. ORDER OBTAINED TO ADVANCE PT'S DIET TO FULL LIQUIDS
[2019-03-19] MEDS: SEVELAMER CARBONATE 800 MG TABLET PO SCH ×2 (13:12→17:26)
[2019-03-19] MEDS: CLONIDINE HCL 0.1 MG TABLET PO SCH ×2 (13:13→21:47)
[2019-03-19] MEDS ORDERED: METOPROLOL TARTRATE INJ 5 MG/5 ML AMPUL IVP PRN (14:30)
[2019-03-19] MEDS: METOPROLOL SUCCINATE 50 MG TAB.SR.24H PO SCH (17:26)
--- NOTE | 2019-03-19 19:29 | NUR ---
VESSEL SCRAPPER CLOSING NOTES PT REMAINS STABLE. ALL NEEDS MET DURING SHIFT. ALL ORDERS CARRIED OUT ACCORDINGLY. BP MANAGED WITH PRN AND SCHEDULED MEDICATIONS. SHE DENIES ANY PAIN AT THIS TIME. PERIPHERAL IVS REMAIN PATENT AND INTACT. PRN CARE RENDERED. ENDORSED TO NIGHTSHIFT RN FOR MERCEDEZ
--- NOTE | 2019-03-19 20:00 | NUR ---
FIRE EXTINGUISHER TESTER INITIAL NOTES RECEIVED PATIENT'S REPORT FROM AM RN.PT A/0 X4. NO SOB OR ACUTE SIGNS OF DISTRESS NOTED, BREATHING IS EVEN AND UNLABORED. PT ON RA AND SATING WELL. SHE DENIES ANY HEADACHE, CP, OR PALPITATIONS. PT SR ON MONITOR. LEFT UPPER ARM AV FISTULA NOTED. BRUIT AND THRILL PRESENT. RIGHT PERIPHERAL IVs NOTED TO BE C/D/I. NO REDNESS OR SIGNS OF INFILTRATION NOTED. BED IN LOW LOCKED POSITION, SIDE RIALS UP X2, CALL LIGHT WITHIN REACH. WILL CONTINUE TO MONITOR PATIENT CLOSELY.
[2019-03-20] VITALS (35 sets, daily range): BP systolic 134–197; BP diastolic 50–96
[2019-03-20 04:41] LABS: BASOPHILS % (AUTO) 0.9 % (0.0-2.0); EOSINOPHILS % (AUTO) 5.1 % (0.0-6.0); HEMATOCRIT 27 % (33-45); HEMOGLOBIN 9.1 g/dL (11.5-14.8); LYMPHOCYTES # (AUTO) 0.7 /CMM (0.8-4.8); LYMPHOCYTES % (AUTO) 20.3 % (20.0-44.0); MEAN CORPUSCULAR HGB CONC 33 g/dl (31.0-36.0); MEAN CORPUSCULAR VOLUME 86 fL (82-100); MONOCYTES # (AUTO) 0.3 /CMM (0.1-1.30); MONOCYTES % (AUTO) 8.9 % (2.0-12.0); NEUTROPHILS # (AUTO) 2.2 /CMM (1.8-8.9); NEUTROPHILS % (AUTO) 64.8 % (43.0-81.0); PLATELET COUNT (AUTO) 145 /CMM (150-450); RED BLOOD CELL COUNT(AUTO) 3.17 MIL/uL (4.0-5.2); WHITE BLOOD COUNT (AUTO) 3.4 K/uL (4.3-11.0)
[2019-03-20 04:56] LABS: CALCIUM, SERUM 7.7 mg/dL (8.5-10.1); MAGNESIUM 2.1 mg/dL (1.8-2.4); PHOSPHORUS 6.2 mg/dL (2.5-4.9); POTASSIUM 4.1 mmol/L (3.5-5.1)
--- NOTE | 2019-03-20 05:00 | NUR ---
RN NOTES GOT A CALL FROM LAB. PATIENT'S CREATININE IS 8.6. ROOF PLUMBER ED IS NOTIFIED. PATIENT IS HD PATIENT AND SHE IS SCHEDULED FOR HD TODAY AM. WILL CONTINUE TO MONITOR PATIENT CLOSELY.
[2019-03-20 05:06] LABS: CREATININE 8.6 mg/dL (0.6-1.3)
--- NOTE | 2019-03-20 05:30 | NUR ---
RN NOTES PATIENT'S B/P IS 177/75 AND SCHEDULED CATAPRES 0.2MG WILL BE ADMINISTERED. PATIENT DENIES ANY CHEST PAIN OR DISCOMFORT, NO SOB AT THIS TIME. WILL RECHECK B/P IN 45 MINUTES.WILL CONTINUE TO MONITOR PATIENT CLOSELY.
[2019-03-20] MEDS: CLONIDINE HCL 0.1 MG TABLET PO SCH ×2 (05:38→12:06)
--- NOTE | 2019-03-20 06:20 | NUR ---
RN NOTES PATIENT'S B/P IS 168/68 WITH HR OF 61.
--- NOTE | 2019-03-20 06:43 | NUR ---
COMPRESSOR OPERATOR CLOSING NOTES PATIENT IS SLEEPING IN THE BED, A/0 X4. NO SOB OR ACUTE SIGNS OF DISTRESS NOTED, BREATHING IS EVEN AND UNLABORED. PATIENT IS ON RA AND SATING WELL. SHE DENIES ANY HEADACHE, SOB OR PALPITATIONS. PT SR ON MONITOR. LEFT UPPER ARM AV FISTULA NOTED. BRUIT AND THRILL PRESENT. RIGHT PERIPHERAL IVs NOTED TO BE C/D/I. NO REDNESS OR SIGNS OF INFILTRATION NOTED DURING MY SHIFT. BED IN LOW LOCKED POSITION, SIDE RIALS UP X2, CALL LIGHT WITHIN REACH. WILL ENDORSE PATIENT CARE TO UPCOMING RN FOR JUNIOR WEB DESIGNER.
--- NOTE | 2019-03-20 07:00 | NUR ---
rn notes PATIENT'S B/P IS 163/65 HR 64 AND LOPRESSOR 5MG IVP HAS BEEN ADMINISTERED. WILL ENDORSE PATIENT CARE TO UPCOMING RN TO MONITOR PATIENT B/P CLOSELY.
[2019-03-20] MEDS: FAMOTIDINE/PF INJ 20 MG/2 ML VIAL IV SCH (08:09)
[2019-03-20] MEDS: SEVELAMER CARBONATE 800 MG TABLET PO SCH ×3 (08:09→17:12)
[2019-03-20] MEDS: HEPARIN SODIUM, PORCINE 5000 UNITS/1 ML VIAL SQ SCH ×2 (08:10→20:18)
[2019-03-20] MEDS: hydrALAZINE HCL IV 20 MG VIAL IV PRN ×2 (15:23→22:23)
--- NOTE | 2019-03-20 15:51 | NUR ---
RN NOTE PATIENT'S B/P REMAINED ELEVATED. GUIDELINES READ TO GIVE HYDRALAZINE FOR SBP > 180. PATIENT REFUSED HYDRALAZINE. CONTACTED DR BACK. PER MD GAVE 0.3MG OF CLONIDINE INSTEAD.
[2019-03-20] MEDS ORDERED: CLONIDINE HCL 0.1 MG TABLET PO PRN (16:00)
[2019-03-20] MEDS: METOPROLOL SUCCINATE 50 MG TAB.SR.24H PO SCH (17:28)
[2019-03-20] MEDS ORDERED: IBUPROFEN 400 MG TABLET PO PRN (17:30)
[2019-03-20] MEDS ORDERED: CLONIDINE HCL 0.1 MG TABLET PO SCH (21:00)
--- NOTE | 2019-03-20 21:15 | NUR ---
RN NOTES RECEIVED PT AWAKE RESTING ON BED. NO ACUTE RESPIRATORY DISTRESS ON RA SATURATION 97%. AFEBRILE. PT S AOX 4 ABLE TO VERBALIZED FEELINGS NSR ON TELE MONITOR. IV SITE ON RFA AND RAC G 20 INTACT AND PATENT FLUSHED WELL. NOTED PATIENT BP WAS ELEVATE. EDUCATE PATIENT REGARDING BP ROUTINE BP MEDICINE AND PRN MEDS. PATIENT IS WELL AWARE. ALL DUE MEDICINE GIVEN ORDERED. ASSISTED PATIENT TO COMMODE FOR BOWEL AND BLADDER BX2 WITH LOOSE AND SOFT BROWN STOOL.KEPT PT CLEAN AND DRY. CALL LIGHT KEPT WITHIN EASY REACH. 21:15PM- PATIENT DOWNGRADE TO SANJEEV FLOOR ON ROOM 111-1 TELE PATIENT, IN STABLE CONDITION. ENDORSED AND REPORT GIVEN TO ALYCIA PACE RN FOR CONTINUITY OF CARE.
--- NOTE | 2019-03-20 21:15 | NUR ---
RN NOTE RECEIVED PATIENT FROM ICU, CHARGE NURSE ED AND LARRY RN BROUGHT PATIENT, AMBULATES WITH ASSISTANCE, BP 197/80, NO PAIN NOTED, NO RESPIRATORY DISTRESS NOTED, PATIENT STATED THAT SHE WANTS TO LEAVE AMA BECAUSE SHE HAS NOT SEEN DOCTOR IN ICU, CALLED HANGERSMITH MARVIN, CHARGE NURSE AND HANGERSMITH MARVIN IS BY BEDSIDE, EXPLAINED ALL RISKS AND BENEFITS, PATIENT STILL WANTS TO GO HOME, NOTIFIED GABRIEL ESCALANTE, GABRIEL ESCALANTE CAME TO PATIENT ROOM WITHIN 5 MONUTE, SPOKE TO THE PATIENT REGARDING RISKS OF HIGH BLOOD PRESSURE AND PATIENT'S DIAGNOSIS, GABRIEL SELLERS GAVE AN ORDER TO GIVE HYDRALAZINE 10 MG IVP NOW AND HYDRALAZINE 50MG PO ONCE, ORDERS READ BACK, AND CARRIED OUT, PER GABRIEL ESCALANTE OK TO DISCHARGE ONCE SPB BELOW 160, PER GABRIEL SELLERS HE WILL PUT AN ORDER FOR DISCHARGE, CHARGE NURSE IS AWARE, HANGERSMITH IS AWARE Addendum: 03/20/19 at 3124 by INOCENCIO ISAACS RN PATIENT IS ALERT/ORIENTED X 4, VERBALIZED UNDERSTANDING, BROTHER AND IS BY BEDSIDE
[2019-03-20] MEDS ORDERED: hydrALAZINE HCL 50 MG TABLET PO ONE (23:00)
[2019-03-20] MEDS ORDERED: HYDR-4077 PO (23:59)
[2019-03-20] MEDS ORDERED: METO50TA7 PO (23:59)
[2019-03-20] MEDS ORDERED: CLON0.1T14 PO (23:59)
[2019-03-20] MEDS ORDERED: SEVE800T7 PO (23:59)
[2019-03-21] VITALS: BP 162/59
--- NOTE | 2019-03-21 01:19 | NUR ---
RN NOTE PATIENT WAS DISCHARGED HOME IN STABLE CONDITION, NO RESPIRATORY DISTRESS NOTED, ON ROOM AIR, AMBULATES WITH ASSISTANCE, VITAL SIGNS STABLE AT THIS TIME, BELONGING'S LIST SIGNED AND PLACED IN THE CHART, PICTURE OF THE SKIN TAKEN AND PLACED IN THE CHART, PRESCRIPTION OF THE MEDICATION WAS PROVIDED BY GABRIEL ESCALANTE, COPY PLACED IN THE CHART, PATIENT VERBALIZED UNDERSTANDING OF DISCHARGE DOCUMENTS, ASSISTED PATIENT TO CAR VIA WHEELCHAIR, ALL SAFETY MEASURES TAKEN
[2019-03-21] MEDS ORDERED: SODIUM POLYSTYRENE SULFONATE 15 G/60 ML BOTTLE ONE (01:20)
== END 2019-03-21 01:00 | disposition home or self-care (01) | DRG 853 ==
LOC: ER 17:58 → ICU 21:14 → TELE1 03-20 21:16
PROVIDERS: ADMIT Nurse Practitioner Acute Care; ATTEND Nurse Practitioner Acute Care
PROC: 5A1945Z Respiratory Ventilation, 24-96 Consecutive Hours (ICD-10-PCS; principal; 2019-03-16)
PROC: 0DJD4ZZ Inspection of Lower Intestinal Tract, Percutaneous Endoscopic Approach (ICD-10-PCS; 2019-03-16)
PROC: 0DJ64ZZ Inspection of Stomach, Percutaneous Endoscopic Approach (ICD-10-PCS; 2019-03-16)
PROC: 5A1D70Z Performance of Urinary Filtration, Intermittent, Less than 6 Hours Per Day (ICD-10-PCS; 2019-03-16)
PROC: 05HM33Z Insertion of Infusion Device into Right Internal Jugular Vein, Percutaneous Approach (ICD-10-PCS; 2019-03-16)
PROC: B543ZZA Ultrasonography of Right Jugular Veins, Guidance (ICD-10-PCS; 2019-03-16)
PROC: 04HK33Z Insertion of Infusion Device into Right Femoral Artery, Percutaneous Approach (ICD-10-PCS; 2019-03-16)
DX: A41.9 Sepsis, unspecified organism (principal); N18.6 End stage renal disease; J96.00 Acute respiratory failure, unspecified whether with hypoxia or hypercapnia; K65.9 Peritonitis, unspecified; E87.2 Acidosis; Q61.2 Polycystic kidney, adult type; I12.0 Hypertensive chronic kidney disease with stage 5 chronic kidney disease or end stage renal disease; E44.0 Moderate protein-calorie malnutrition; E27.40 Unspecified adrenocortical insufficiency; K83.09 Other cholangitis; E87.5 Hyperkalemia; Z99.2 Dependence on renal dialysis; D25.9 Leiomyoma of uterus, unspecified; Z88.1 Allergy status to other antibiotic agents; D63.8 Anemia in other chronic diseases classified elsewhere; N28.89 Other specified disorders of kidney and ureter; K76.89 Other specified diseases of liver; N83.9 Noninflammatory disorder of ovary, fallopian tube and broad ligament, unspecified; Z76.82 Awaiting organ transplant status; M85.9 Disorder of bone density and structure, unspecified
CPT/HCPCS: 31720; 36415; 36600; 71045-TC; 71250-TC; 80048-TC; 80053-TC; 80061-TC; 80076-TC; 81000-TC; 82248-TC; 82803-TC; 82962-TC; 83605-TC; 83690-TC; 83735-TC; 84100-TC; 84443-TC; 84484-TC; 85025-TC; 85730-TC; 86706; 86850-TC; 87040-TC; 87081-TC; 87086-TC; 87340; 90935-TC; 93307-TC; 94002-TC; 94003-TC; 94799-TC; 99082-TC; A4216; A4217; C1751; C9113; G0378; J0360; J0610; J0690; J1170; J1644; J2250; J2270; J2405; J2543; J3370; J3490; J7030; J7040; J7050; J7060; J7070; Q9967

== ENCOUNTER 2025-06-22 16:05 | Emergency (ER) | payer MEDICARE, OTHER ==
[~2025-06-22] VITALS: Ht 167.6 cm; Wt 60.3 kg
[~2025-06-22 16:05] MED LIST changes: +CLON0.1T14 PO; +HYDR-4077 PO; +METO50TA7 PO; -PIPERACILLIN /TAZOBACTAM 2.25 G in IV D5W 50 ML IV SCH; +SEVE800T7 PO
[2025-06-22] MEDS: LEVETIRACETAM (500MG) 1,000 MG in IV NS 0.9% 90 ML IV SCH (16:28)
[2025-06-22 17:06] LABS: CALCIUM, SERUM 7.0 mg/dL (8.5-10.1); CREATININE 0.6 mg/dL (0.6-1.3); SODIUM SERUM 139 mmol/L (136-145); UREA NITROGEN, BLOOD 9 mg/dL (7-18)
[2025-06-22 17:08] LABS: ASPARTATE AMINOTRANSFERASE 9 U/L (15-37); TOTAL PROTEIN, SERUM 5.1 g/dL (6.4-8.2)
[2025-06-22 17:09] LABS: SERUM AMMONIA 11 umol/L (11-32)
[2025-06-22 17:10] LABS: INR 1.3 (0.91-1.10)
[2025-06-22 17:11] LABS: LACTIC ACID 3.7 mmol/L (0.4-2.0)
[2025-06-22 17:20] LABS: ALCOHOL, BLOOD < 3 mg/dL (0-10)
[2025-06-22 17:25] LABS: PLATELET COUNT (AUTO) 318 K/uL (150-450); RED BLOOD CELL COUNT(AUTO) 2.90 MIL/uL (4.0-5.2); RED CELL DISTRIBUTION WIDTH 17.2 % (11.5-15.0); WHITE BLOOD COUNT (AUTO) 5.4 K/uL (4.3-11.0)
[2025-06-22] MEDS: dexaMETHasone SOD PHOSPHATE 10 MG/ML VIAL IV ONE (18:00)
[2025-06-22] MEDS ORDERED: dexaMETHasone SOD PHOSPHATE 1 ML ONE (18:09)
[2025-06-22 21:45] VITALS: BP 122/66; TEMP 98; O2SAT 95
== END 2025-06-22 21:45 ==
LOC: ER 16:25
DX: G93.6 Cerebral edema (principal); R56.9 Unspecified convulsions; I12.0 Hypertensive chronic kidney disease with stage 5 chronic kidney disease or end stage renal disease; I25.2 Old myocardial infarction; I49.3 Ventricular premature depolarization; N18.6 End stage renal disease; Z99.2 Dependence on renal dialysis; Z94.0 Kidney transplant status; Z88.1 Allergy status to other antibiotic agents; Z79.899 Other long term (current) drug therapy
CPT/HCPCS: 99291; 96365; 96375; 93005; 71045; 70450; 82140; 85025; 80048; 87040 ×2; 83605; 80076; 36415; 84443; 84484; 85730; 82962; 80320; J1100; J7030; J1953; G0480